=== PATIENT | male | born 1955 | race Caucasian/White ===

== ENCOUNTER 2016-12-31 11:01 | Emergency (ER) | payer MEDICAID ==
[~2016-12-31] VITALS: Ht 177.8 cm; Wt 88.9 kg
--- NOTE | ~2016-12-31 | EKG ---
PATIENT: SUSY ROMANO UNIT #: [id number] Ventricular Rate: 69 BPM Atrial Rate: 69 BPM P-R Interval: 196 ms QRS Duration: 134 ms Q-T Interval: 398 ms QTC Calculation(Bezet): 426 ms P [place]: 42 degrees Calculated R [place]: -50 degrees Calculated T [place]: 145 degrees Diagnosis Line: Normal sinus rhythm Diagnosis Line: Left bundle branch block Diagnosis Line: Abnormal ECG Diagnosis Line: When compared with ECG of 29-JUN-2016 11:33, Diagnosis Line: No significant change was found Diagnosis Line: Confirmed by HAYES DENNY MD ([id number]) on 12/31/2016 Diagnosis Line: 6:32:00 PM INTERPRETING MD: DENISHA LOGAN
--- NOTE | ~2016-12-31 | CR72 ---
[facility] A Service of [facility] RADIOLOGY TEXT RESULTS PATIENT: SUSY ROMANO SR LOCATION: [facility] : 57 UNIT #: [id number] AGE: [address]: Pancho Akers MD SEX: M ORDER DR: [id number] [facility]. [place], [place] [address] [id number] E MR#: [id number] Acc #: [id number] NAME: SUSY ROMANO SR : 1955 SEX: M STUDY DATE/TIME: 12/31/2016 11:44 UNIT: [facility] ROOM: STUDY DESCRIPTION: CR Chest Single View Portable Attending Physician: Pancho Akers M.D. Ordering Physician: Pancho Akers M.D. Primary Care Physician: Nicki Acharya M.D. MEDICAL IMAGING REPORT This report is preliminary unless electronic signature is present EXAM Frontal chest 12/31/2016 INDICATIONS 61-year-old male with chest pain, sharp chest pain today. HISTORY Congestive heart failure, hypertension, myocardial infarction. Former smoker. TECHNIQUE Frontal chest compared with 06/29/16. FINDING Cardiac silhouette demonstrates borderline size and tortuosity of the aorta. Vascularity is normal. Lungs clear. There is old healed granulomatous disease. No pneumothorax. IMPRESSION 1. Borderline cardiac size and old healed granulomatous disease otherwise negative chest. Dictated by... Teo Pizano M.D. THIS IS AN ELECTRONICALLY VERIFIED REPORT Teo Pizano M.D. at 12/31/2016 4:33 PM SANDHYA/viridiana TD: 12/31/2016 15:16 JOB #: [id number] [facility] A Service of [facility] RADIOLOGY TEXT RESULTS PATIENT: SUSY ROMANO SR LOCATION: [facility] : 57 UNIT #: [id number] AGE: [address]: Pancho Akers MD SEX: M ORDER DR: MEDICAL IMAGING REPORT Page 1 of 1 COPY
[~2016-12-31 11:01] MED LIST: ALBUTEROL MININEB NEB; APAP500 MG PO; ASPIRIN PO; ASPIRIN81 M2 PO; B-121000 MC1 PO; BENZONATATE PO; CEFTRIAXONE500 MG PO; COREG6.25 MG PO; DELTASONE20 MG PO; HYDRALAZINE HCL25 MG PO; HYDRALAZINE HCL50 MG PO; LASIX PO; LASIX20 MG PO; LISINOPRIL PO; LOPRESSOR PO; NORVASC PO; NORVASC10 MG PO; PRED FORTE1 ML OU; SIMVASTATIN20 MG PO; VENTOLIN INH; ZESTRIL10 M1 PO; ZOCOR PO
[2016-12-31 11:49] LABS: POC - CKMB 1.6 ng/mL (0.0-7.9); POC - TROPONIN <0.05 ng/mL (<=0.05)
[2016-12-31 11:59] LABS: BASOPHIL% 0.7 % (0-2.5); EOSINOPHIL# 0.2 X10e3 (0-0.7); EOSINOPHIL% 2.3 % (0.0-7.0); HEMATOCRIT 43.2 % (38.0-50.0); HEMOGLOBIN 14.7 gm/dL (13.0-16.0); LYMPHOCYTE# 1.4 X10e3 (1.0-3.5); LYMPHOCYTE% 20.9 % (17.0-45.0); MEAN CELL VOLUME 88.7 FL (83-96); MEAN CORPUSCULAR HEMOGLOBIN 30.2 PG (28-34); MEAN CORPUSCULAR HGB CONC 34.1 g/dL (30-36); MEAN PLATELET VOLUME 7.3 FL (6.5-11.5); MONOCYTE# 0.6 X10e3 (0-1.0); MONOCYTE% 8.2 % (3.0-12.0); NEUTROPHIL# 4.6 X10e3 (1.5-7.1); NEUTROPHIL% 67.9 % (40-75); PLATELET COUNT 205 X10e3 (140-420); RED BLOOD COUNT 4.87 X10e (3.90-5.60); RED CELL DISTRIBUTION WIDTH 12.3 % (11.0-15.5); WHITE BLOOD COUNT 6.8 X10e3 (4.0-10.5)
[2016-12-31 12:04] LABS: DIFF IND NO
[2016-12-31 12:28] LABS: ALBUMIN SERUM 4.6 g/dL (3.5-5.0); ALKALINE PHOSPHATASE 78 U/L (32-92); ALT (SGPT) 22 U/L (10-40); AST (SGOT) 21 U/L (10-42); BILIRUBIN, DIRECT <0.1 mg/dL (0.0-0.2); BILIRUBIN,INDIRECT 0.6 mg/dL (0.0-0.9); BILIRUBIN,TOTAL 0.7 mg/dL (0.2-2.0); BLOOD UREA NITROGEN 21 mg/dL (9-23); CALCIUM SERUM 9.6 mg/dL (8.4-10.2); CARBON DIOXIDE 25 mmol/L (22-31); CHLORIDE 104 mmol/L (100-111); CREATININE SERUM 1.5 mg/dL (0.6-1.4); GLOM FILT RATE Estimated 49.9 mL/min (>60); GLUCOSE FASTING 100 mg/dL (70-110); POTASSIUM 4.1 mmol/L (3.5-5.1); SODIUM 138 mmol/L (135-145)
[2016-12-31 13:19] LABS: POC - CKMB 1.4 ng/mL (0.0-7.9); POC - TROPONIN <0.05 ng/mL (<=0.05)
== END 2016-12-31 13:31 | disposition home or self-care (01) ==
LOC: CED 11:01
PROVIDERS: Emergency Medicine
DX: R07.89 Other chest pain (principal); I11.0 Hypertensive heart disease with heart failure; I50.9 Heart failure, unspecified; E78.5 Hyperlipidemia, unspecified; Z79.899 Other long term (current) drug therapy
CPT/HCPCS: 36415; 71010; 80048; 80076; 82553; 84484; 85025; 93005; 96374; 99285